=== PATIENT | male | born 1995 | race Hispanic/Latino ===

== ENCOUNTER 2017-11-12 11:51 | Emergency (ER) | payer OTHER ==
[2017-11-12 12:13] VITALS: BP 124/80
[2017-11-12] MEDS ORDERED: THERMAZENE 50 GRAM TP ONE (12:49)
[2017-11-12] MEDS ORDERED: MOTRIN PO ONE (12:49)
[2017-11-12] MEDS ORDERED: BOOSTRIX IM ONE (12:49)
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
--- NOTE | 2017-11-12 15:38 | XRay Report ---
FINAL REPORT EXAM: XR FOOT 3+V LT HISTORY: left foot pain TECHNIQUE: AP, oblique and lateral radiographs of the left foot. PRIORS: None. FINDINGS: No fracture. No dislocation. Normal mineralization. No soft tissue abnormality. No degenerative change. IMPRESSION: No acute left foot abnormality.
--- NOTE | 2017-11-12 16:05 | XRay Report ---
FINAL REPORT EXAM: XR CLAVICLE LT HISTORY: left clavicle pain TECHNIQUE: AP and axial radiographs of the left clavicle. PRIORS: None. FINDINGS: No fracture. No dislocation. Normal mineralization. No soft tissue abnormality. No degenerative change. IMPRESSION: Normal left clavicle.
== END 2017-11-12 16:26 | disposition home or self-care (01) ==
LOC: ED 11:51
DX: S40.212A Abrasion of left shoulder, initial encounter (principal); V29.9XXA Motorcycle rider (driver) (passenger) injured in unspecified traffic accident, initial encounter; Y93.89 Activity, other specified; Y92.89 Other specified places as the place of occurrence of the external cause; Y99.8 Other external cause status
CPT/HCPCS: 90471; 90715; 99283

== ENCOUNTER 2017-11-15 17:21 | Emergency (ER) | payer SELFPAY ==
[2017-11-15 17:39] VITALS: BP 135/59
[2017-11-15] MEDS ORDERED: ULTRAM PO ONE (22:04)
[2017-11-15] MEDS ORDERED: CLEOCIN 900 MG/50 mL 900 MG/50 ML BAG IV ONE (22:05)
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
== END 2017-11-15 23:45 | disposition home or self-care (01) ==
LOC: ED 17:21
DX: L03.116 Cellulitis of left lower limb (principal); J45.909 Unspecified asthma, uncomplicated
CPT/HCPCS: 96365; 99283